=== PATIENT | female | born 1960 | race Caucasian/White ===

== ENCOUNTER 2017-10-28 10:02 | Day surgery (SDC) | payer BC ==
[2017-10-26 16:02] VITALS: BMI 28.1
[~2017-10-28 10:02] MED LIST: LIDOCAINE 1% 20 ML VIAL (10MG/ML) FOR IV START INTRADERMA PRN
[2017-10-28 10:38] VITALS: RESP 18; TEMP 97.4
[2017-10-28] MEDS: LACTATED RINGERS 1,000 ML IV SCH ×2 (10:42→11:12)
[2017-10-28] MEDS ORDERED: PROPOFOL 10 MG/ML 20 ML VIAL IV ONE (11:18)
--- NOTE | 2017-10-28 11:40 | P.PCN ---
Date of Procedure: 10/28/17 Procedure(s) Performed: BRIEF HISTORY: Patient is a 57-year-old pleasant white female, scheduled for an elective colonoscopy as a part of screening for colorectal neoplasia. PROCEDURE PERFORMED: Colonoscopy with biopsy. PREOPERATIVE DIAGNOSIS: Screening for colon cancer. IV sedation per Anesthesia. PROCEDURE: After informed consent was obtained, the patient, was brought into the endoscopy unit. IV sedation was administered by Anesthesia under continuous monitoring. Digital rectal examination was normal. Initially the Olympus CF- 160 flexible video colonoscope was then inserted in the rectum, gradually advanced into the cecum without any difficulty. Careful examination was performed as the scope was gradually being withdrawn. Ileocecal valve and the appendiceal orifice were visualized and appeared normal. Prep was excellent. Mucosa of the cecum, ascending colon, transverse colon, descending colon, sigmoid colon, and rectum appeared normal. In the proximal rectum there was a 5 mm polyp that was removed by biopsy. Retroflexion was performed in the rectum and small internal hemorrhoids were seen. The patient tolerated the procedure well. IMPRESSION: 5 mm proximal rectal polyp status post removal by biopsy. Small internal hemorrhoids RECOMMENDATIONS: Findings of this examination were discussed with the patient as well as a family. She was advised to follow with the biopsy results. If the biopsy shows a tubular adenoma she can have a repeat colonoscopy in 5 years.
[2017-10-28 12:18] VITALS: BP 108/70; PULSE 66
== END 2017-10-28 12:32 | disposition home or self-care (01) ==
LOC: ORWHC2ENDO 10:02
PROVIDERS: ATTEND Internal Medicine Gastroenterology
DX: Z12.11 Encounter for screening for malignant neoplasm of colon (principal); K62.1 Rectal polyp; K64.8 Other hemorrhoids; I10 Essential (primary) hypertension; E78.5 Hyperlipidemia, unspecified; Z88.1 Allergy status to other antibiotic agents; Z79.1 Long term (current) use of non-steroidal anti-inflammatories (NSAID); Z79.899 Other long term (current) drug therapy; F17.210 Nicotine dependence, cigarettes, uncomplicated
CPT/HCPCS: 88305; 45380; J2704

== ENCOUNTER → 2022-08-21 | Outpatient (CLI) | payer OTHER | END | disposition home or self-care (01) | LOC: LABPAT 09:55 | PROVIDERS: ATTEND Orthopaedic Surgery | DX: Z01.812 Encounter for preprocedural laboratory examination (principal); M16.12 Unilateral primary osteoarthritis, left hip ==

== ENCOUNTER 2022-08-25 11:47 | Day surgery (SDC) | payer BC, OTHER ==
[2022-08-20 10:51] VITALS: BMI 27.8
[2022-08-21 11:30] LABS: Prothrombin Time 10.2 sec (9.0-12.0)
[2022-08-21 11:33] LABS: Partial Thromboplastin Time 21.8 sec (22.0-30.0)
[2022-08-24 10:00] LABS: African American GFR (CKD) 77.2 (60.0-200.0); Albumin 3.9 g/dL (3.8-4.9); Albumin/Globulin Ratio 1.38 (1.60-3.17); Anion Gap 11.4 mmol/L (10.00-18.00); BUN/Creat Ratio 12.34 Ratio (12.00-20.00); Blood Urea Nitrogen 11.5 mg/dL (9.0-27.0); Calcium 9.6 mg/dL (8.7-10.3); Carbon Dioxide 26.2 mmol/L (20.0-27.5); Globulin 2.8 g/dL (1.6-3.3); HGB 13.7 g/dL (12.0-15.0); MCH 31.9 pg (27.0-32.0); MCHC 32.6 g/dL (32.0-37.0); MCV 97.7 fL (80.0-97.0); Mean Platelet Volume 10.2 fL (9.5-12.2); NRBC Per 100 WBC 0 /100 WBCS (0.0-0.0); Non-African American GFR(CKD) 66.6 (60.0-200.0); Platelet Count 309 X 10*3/uL (140-440); RDW 13.2 % (11.5-14.5); Total Bilirubin 0.6 mg/dL (0.30-1.20); Total Protein 6.7 g/dL (6.2-8.2); WBC 8.47 X 10*3/uL (4.50-10.00)
[~2022-08-25 11:47] MED LIST changes: +ACETAMINOPHEN TAB 500 MG TAB PO PRN; +DEXAMETHASONE SOD PHOSPHATE 4 MG/ML 1 ML VIAL IV ONE; +GABAPENTIN 300 MG CAP PO PRN; +HYDROmorphone 0.5 MG/0.5 ML SYRINGE IVP PRN; +LACTATED RINGERS 1,000 ML IV SCH; -LIDOCAINE 1% 20 ML VIAL (10MG/ML) FOR IV START INTRADERMA PRN; +MELOXICAM 7.5 MG TAB PO PRN; +ONDANSETRON 4 MG/2 ML VIAL IVP ONE; +TRANEXAMIC ACID IN NACL,ISO-OS 1,000 MG in SALINE 1 100ML.BAG IVPB PRN
[2022-08-25] MEDS ORDERED: ONDANSETRON 4 MG/2 ML VIAL IVP PRN (13:45)
[2022-08-25] MEDS ORDERED: SODIUM CHLORIDE 0.9% 1,000 ML IV SCH (13:45)
[2022-08-25] MEDS ORDERED: HYDROmorphone 0.5 MG/0.5 ML SYRINGE IVP PRN (13:45)
[2022-08-25] MEDS ORDERED: NALOXONE 0.4 MG/ML 1 ML VIAL IV PRN (13:45)
[2022-08-25] MEDS ORDERED: HYDROmorphone 1 MG/ML 1 ML SYRINGE IVP PRN (13:45)
[2022-08-25] MEDS ORDERED: MAGNESIUM HYDROXIDE 2,400 MG/10 ML CUP PO PRN (13:45)
[2022-08-25] MEDS ORDERED: HYDROcodone/APAP 7.5-325MG 1 EACH TAB PO PRN ×3 (13:47→15:13)
[2022-08-25] MEDS ORDERED: KETOROLAC 15 MG/ML 1 ML VIAL IVP PRN (13:49)
[2022-08-25] MEDS ORDERED: traMADol 50 MG TAB PO PRN ×2 (13:49)
[2022-08-25] MEDS ORDERED: fentaNYL (PF) 50 MCG/ML 2 ML AMP ONE (13:50)
[2022-08-25] MEDS ORDERED: TRANEXAMIC ACID IN NACL,ISO-OS 1,000 MG/100 ML BAG ONE (13:50)
[2022-08-25] MEDS ORDERED: PROPOFOL 10 MG/ML 20 ML VIAL IV ONE (13:50)
[2022-08-25] MEDS ORDERED: MIDAZOLAM 2 MG/2 ML VIAL ONE (13:50)
[2022-08-25] MEDS ORDERED: ePHEDrine 50 MG/ML 1 ML VIAL ONE (13:50)
--- NOTE | 2022-08-25 14:55 | P.OP ---
Date of Procedure: 08/25/22 Preoperative Diagnosis: Severe osteoarthritis left hip Postoperative Diagnosis: Severe osteoarthritis left hip Procedure(s) Performed: Left total arthroplasty with a direct anterior approach Implants: [employer] Polarstem standard size 5 with collar [employer] R3, 3 hole hemispherical acetabular shell, 52 mm [employer] Reflection 6.5 mm cancellus screw, 20 mm 2 [employer] R3, XLPE 20 acetabular liner [employer] Oxinium femoral head 36 m, +4 All components were press-fit. The articulation is Oxinium on polyethylene. Anesthesia: spinal Surgeon: Satinder Serrano Ceramic Coater #1: Thuy Chou Estimated Blood Loss (ml): 300 Pathology: other (Femoral head) Condition: stable Disposition: PACU Indications for Procedure: After failure of conservative treatment we discussed the surgical and nons urgical treatment options at length. Patient wishes to proceed with a total hip arthroplasty with a direct anterior approach. Complications specific to this procedure were discussed at length, including but not limited to infection, leg length discrepancy, dislocation, nerve injury, and fracture. Covid-19 was also discussed at length with the patient, and they are aware of the current policies and procedures. The patient was given the option of delaying surgery, but they elect to proceed knowing these risks. Patient is aware of all these complications and informed consent was obtained Operative Findings: The operative findings are consistent with severe osteoarthritis of the left hip Description of Procedure: Patient was seen and evaluated in the preoperative area and the consent was reviewed. The operative site was marked with a skin marker. The patient was then brought to the operating room and given preoperative antibiotics intravenously. 1 g of Tranexamic acid was also given intravenously. A spinal anesthetic was administered by the anesthesia department. The patient was then placed on the [place] table with the bony prominences well-padded. The hip area was then prepped with a ChloraPrep solution and draped in the usual sterile fashion. A universal timeout was then performed, which confirmed the patient's name, surgical site, ALLERGIES, and procedure being performed on the consent. Next the incision site was located at 1 cm distal and 2 cm lateral to the anterior superior iliac spine. The skin and subcutaneous tissues were sharply incised. Incision was carefully dissected down to the fascia overlying the tensor fascia lisandro muscle. This fascia was then incised in line with the incision. Care was taken to stay laterally in order to avoid injuring the lateral femoral cutaneous nerve. Next, using blunt finger dissection, the tensor fascia lisandro muscle was dissected off its investing fascia. The muscle was then carefully retracted laterally with a cobra retractor over the lateral neck of the femur. Next, the circumflex vessels were identified and cauterized using the AquaMantis device. The anterior hip capsule was then exposed. The capsule was then opened and an inverted T fashion. Cobra retractors were then placed intracapsularly. The retractors were maintained intracapsular throughout the procedure. The proximal femur was then visualized. Fluoroscopic x-rays were then taken in order to evaluate the preoperative leg lengths. A small amount of traction was placed on the leg. The femoral neck was then osteotomized at the appropriate level above the lesser trochanter. A small wedge of bone was then removed from the remaining femoral head. Next, using a corkscrew the femoral head was removed from the acetabulum. On gross visual inspection, the femoral head had complete loss of articular cartilage and multiple periarticular osteophytes. The femoral head was then me asured. Attention was then turned to the acetabulum. The acetabulum was exposed and any remaining labrum was excised. Sequential reaming of the acetabulum was performed using fluoroscopic guidance until there was a good bed of bleeding cancellus bone. When the appropriate size was reached, a trial was then placed. The position and fit of the trial was checked with fluoroscopy. The trial was then removed. Then, using fluoroscopic guidance, the final implant was impacted at 20 of anteversion and 40 of abduction, and fully seated in the acetabulum. 2 screws were then placed in the acetabulum. Again fluoroscopy was used to check position of the screws. Next, the liner was then impacted, with a 20 elevated liner located in the anterior superior quadrant. Component locking was confirmed. Attention was then directed to the femur. With the aid of the [place] table, the femur was externally rotated to approximately 130, extended, and adducted under the opposite leg. A side hook was then placed under the proximal femur, and the side hook elevator was used to elevate the proximal femur while releasing the capsule. Retractors were then placed. A capsular release was performed, as well as a release of the conjoined tendon, which afforded excellent visualization of the proximal femur. Next, a box osteotome was used to lateralize the proximal femur. A copper roller handler printing was then used to locate the femoral canal. Sequential broaching was then performed with appropriate size which afforded excellent fixation in the proximal femur. A trial was then placed with appropriate head and neck, and the hip was gently reduced with the aid of the [place] table. Fluoroscopy was then used to check position of the components, as well as to evaluate the leg lengths and offset. The leg lengths and offset were measured as closely as possible to ensure stability of the hip. The hip was then gently dislocated and the trials were then removed. Final implants were then impacted and the hip was again reduced. Final fluoroscopic x-rays confirmed that the components were in anatomic position. The leg lengths and offset were measured and were found to coincide with the trial measurements. The hip was also taken through range of motion, and found to be stable. The hip was then copiously irrigated with antibiotic solution with pulsatile lavage. The hip was then irrigated with Irrisept solution. The soft tissues were then injected with a ropivacaine solution. A second dose of 1 g of Tranexamic acid was also given intravenously. The fascia was then closed with 2-0 strata fix suture. The subcutaneous tissue was closed with 3-0 Vicryl. The subcuticular tissue was closed with 3-0 strata fix suture. The skin was then closed with Exofin skin glue. After the glue and dried, and Optifoam silver impregnated dressing was applied. The patient was then transferred to the recovery room in stable condition. The orthopaedic physician assistant SANTIAGO Guillaume was required due to the complexity of surgery, and the need for skilled cardiovascular surgical tech for positioning, draping, exposure, retraction, and closure of the wound.
--- NOTE | 2022-08-25 15:29 | FL ---
EXAMINATION TYPE: FL guidance operating room, XR Hip Limited LT DATE OF EXAM: 08/25/2022 CLINICAL HISTORY: Left hip pain and osteoarthritis. TECHNIQUE: Fluoroscopy. Intraoperative limited views left hip. COMPARISON: None. FINDINGS: Fluoroscopic guidance was provided during left hip replacement procedure performed by Dr. Serrano. A total of 39 seconds of fluoroscopic time was utilized during the procedure and 3 spot im ages was acquired. Intraoperative images acquired show first advanced degenerative change left hip. There is subsequent hip replacement. Metallic hardware appears satisfactory in position on frontal intraoperative views o btained. IMPRESSION: As Above.
--- NOTE | 2022-08-25 15:50 | XR ---
EXAMINATION TYPE: XR Hip Limited LT DATE OF EXAM: 08/25/2022 COMPARISON: NONE HISTORY: . Postop TECHNIQUE: One view submitted. FINDINGS: There is postsurgical change in near anatomic alignment. There is soft tissue edema and emphysema. IMPRESSION: 1. Postoperative change. Appears in near-anatomic alignment.
[2022-08-25] MEDS: ASPIRIN 325 MG TAB PO SCH (19:44)
[2022-08-25] MEDS: HYDROmorphone 0.5 MG/0.5 ML SYRINGE IVP PRN (19:45)
[2022-08-25] MEDS ORDERED: ASPIRIN 325 MG TAB PO SCH (21:00)
[2022-08-25] MEDS ORDERED: SENNOSIDES-DOCUSATE SODIUM 1 EACH TAB PO SCH (21:00)
[2022-08-26] MEDS: HYDROmorphone 0.5 MG/0.5 ML SYRINGE IVP PRN (00:43)
[2022-08-26] MEDS: HYDROcodone/APAP 7.5-325MG 1 EACH TAB PO PRN ×2 (02:40→08:30)
[2022-08-26 03:04] VITALS: TEMP 97.8
--- NOTE | 2022-08-26 07:34 | P.DS ---
Providers Expected date of discharge: 08/26/22 Attending physician: Satinder Serrano Consults: 08/25/22 15:17 Consult Physician Routine Consulting Provider: Dat Ko Consult Reason/Comments: medical management Do you want consulting provider notified?: Yes Primary care physician: Estephania Darnell - Discharge Diagnosis(es) (1) Primary localized osteoarthritis of left hip Current Visit: Yes Status: Acute (2) Status post total hip replacement, left Current Visit: Yes Status: Acute Hospital Course: This is a 62-year-old female with known history of degenerative arthritis of the left hip. The patient presents for evaluation. After discussion and consideration patient elects to proceed with total hip arthroplasty with direct anterior approach. The patient is seen preoperatively by primary care physician and cleared for surgery. Patient is admitted to [facility] on 08/25/2022 for total hip arthroplasty with direct anterior approach. The procedure is performed without complication or sequelae. The patient is doing well postoperatively. Labs and vital signs are stable on day of discharge. On day of discharge patient's hip incision is healing well. There is minimal erythema. There is no drainage noted at this time. There is minimal soft tissue swelling to the hip and thigh. Patient has full foot and ankle motion without difficulty or pain. Neurovascular status to the lower extremity is intact. Patient is discharged to home in good condition. Please see med rec for accurate list of home medications. Patient Condition at Discharge: Good Plan - Discharge Summary Discharge Rx Participant: Yes New Discharge Prescriptions: New HYDROcodone/APAP 7.5-325MG [[place] 7.5-325] 1 - 2 tab PO Q6H PRN #32 tab PRN Reason: Pain Aspirin 325 mg PO BID #60 tab Sennosides [Senokot] 2 tab PO DAILY PRN #60 tablet PRN Reason: Constipation No Action guaiFENesin [Mucinex] 600 mg PO Q12H Ezetimibe [Zetia] 10 mg PO HS Amoxicillin 500 mg PO Q12HR Albuterol Sulfate [Albuterol Sulfate Hfa] 2 puff PO Q6H Atorvastatin [Lipitor] 40 mg PO HS Anastrozole [Arimidex] 1 mg PO DAILY Discharge Medication List Albuterol Sulfate [Albuterol Sulfate Hfa] 2 puff PO Q6H 08/20/22 [History] Amoxicillin 500 mg PO Q12HR 08/20/22 [History] Anastrozole [Arimidex] 1 mg PO DAILY 08/20/22 [History] Atorvastatin [Lipitor] 40 mg PO HS 08/20/22 [History] Ezetimibe [Zetia] 10 mg PO HS 08/20/22 [History] guaiFENesin [Mucinex] 600 mg PO Q12H 08/20/22 [History] Aspirin 325 mg PO BID #60 tab 08/25/22 [Rx] HYDROcodone/APAP 7.5-325MG [[place] 7.5-325] 1 - 2 tab PO Q6H PRN #32 tab 08/25/22 [Rx] Sennosides [Senokot] 2 tab PO DAILY PRN #60 tablet 08/25/22 [Rx] Follow up Appointment(s)/Referral(s): Satinder Serrano DO [Doctor of Osteopathic Medicine] - 2 Weeks Activity/Diet/Wound Care/Special Instructions: Weightbearing as tolerated with walker. Leave dressing intact. Dressing may be removed by home care nurse or by patient in 7 days. Then change dressing twice daily until follow up. May shower with initial dressing intact and after removal. If dressing become saturated, please remove. Please take aspirin 325mg twice daily for 30 days to prevent blood clots. Recommend use of compression stockings daily until follow up to help prevent swelling and blood clots. May remove at night before sleeping. Please follow-up with [facility] in 2 weeks and call with any questions or concerns, . Discharge Disposition: HOME WITH HOME HEALTH SERVICES
[2022-08-26 07:55] VITALS: BP 114/75; PULSE 63; RESP 17
[2022-08-26] MEDS: ASPIRIN 325 MG TAB PO SCH (08:30)
[2022-08-26 09:51] LABS: Basophils # (A) 0.03 X 10*3/uL (0.00-0.10); Basophils % (A) 0.2 %; Eosinophils # (A) 0 X 10*3/uL (0.04-0.35); Eosinophils % (A) 0 %; HCT 31.7 % (37.2-46.3); HGB 10.7 g/dL (12.0-15.0); Immature Grans, Automated 0.6 %; Lymphocytes # (A) 2.08 X 10*3/uL (0.90-5.00); Lymphocytes % (A) 16.4 %; MCH 31.7 pg (27.0-32.0); MCHC 33.8 g/dL (32.0-37.0); MCV 93.8 fL (80.0-97.0); Mean Platelet Volume 10.3 fL (9.5-12.2); Monocytes # (A) 0.75 X 10*3/uL (0.20-1.00); Monocytes % (A) 5.9 %; NRBC Per 100 WBC 0 /100 WBCS (0.0-0.0); Neutrophils # (A) 9.79 X 10*3/uL (1.80-7.70); Neutrophils % (A) 76.9 %; Platelet Count 307 X 10*3/uL (140-440); RBC 3.38 X 10*6/uL (4.10-5.20); RDW 12.9 % (11.5-14.5); WBC 12.72 X 10*3/uL (4.50-10.00)
--- NOTE | 2022-08-26 15:25 | P.CONS ---
History of Present Illness - Reason for Consult Consult date: 08/26/22 Medical management, postop left hip arthroplasty - History of Present Illness This is a 62-year-old female who was recently admitted under orthopedic services and underwent left total hip arthroplasty. Patient follows with Dr. Darnell in the outpatient setting with a past medical history of breast cancer, hyperlipidemia, osteoarthritis, along with seasonal ALLERGIES, and reports to being a former smoker with occasional social drinking and denies any other illicit drug use. Patient is postoperatively feeling well and worked with physical therapy and plans for going home today. Patient reports she has been having some nasal congestion and currently on antibiotics from her primary care provider for a sinus infection. She reports she has been on a few different antibiotics and also had testing for Covid which was negative. Preadmission labs were reviewed and within normal limits and repeat CBC today shows a mildly elevated WBC of 12.72 most likely reactive. Vital signs are stable and patient denies chest pain or shortness of breath. Review Of Systems: Constitutional: No fever, no chills, no night sweats. No weight change. No weakness, fatigue or lethargy. No daytime sleepiness. EENT: No headache. No blurred vision or double vision, no loss of vision. No loss of Hearing, no ringing in the ears, no dizziness. Reports seasonal ALLERGIES with nasal drainage and some increased congestion the last 2 weeks. No epistaxis. No sore throat. Lungs: No shortness of breath, reports occasional cough, no sputum production. No wheezing. Cardiovascular: No chest pain, no lower extremity edema. No palpitations. No paroxysmal nocturnal dyspnea. No orthopnea. No lightheadedness or dizziness. No syncopal episodes. Abdominal: No abdominal pain. No nausea, vomiting. No diarrhea. No constipation. No bloody or tarry stools.. No loss of appetite. Genitourinary: No dysuria, increased frequency, urgency. No urinary retention. Musculoskeletal: No myalgias. No muscle weakness, no gait dysfunction, no frequent falls. No back pain. No neck pain. Reports some left hip discomfort Integumentary: No wounds, no lesions. No rash or pruritus. No unusual bruising. No change in hair or nails. Neurologic: No aphasia. No facial droop. No change in mentation. No head injury. No headache. No paralysis. No paresthesia. Psychiatric: No depression. No anxiety. No mood swings. Endocrine: No abnormal blood sugars. No weight change. No excessive sweating or thirst. No cold intolerance. PHYSICAL EXAMINATION: GENERAL: The patient is alert and oriented x4, Well developed, well nourished. HEENT: Pupils are round and equally reacting to light. EOMI. no scleral icterus. No conjunctival pallor. Normocephalic, atraumatic. No pharyngeal erythema. No thyromegaly. CARDIOVASCULAR: S1 and S2 muffled PULMONARY: diminished breath sounds bilaterally with no wheezing or rhonchi noted. ABDOMEN: soft. Nontender on exam. non-distended, normoactive bowel sounds. No palpable organomegaly. MUSCULOSKELETAL: No joint swelling or deformity. EXTREMITIES: No cyanosis, clubbing, or pedal edema. Left hip surgical dressing is dry and intact NEUROLOGICAL: Gross neurological examination did not reveal any focal deficits. SKIN: No rashes. Assessment: Status post left total knee arthroplasty, postop day 1 History of osteoarthritis History of breast cancer History of seasonal ALLERGIES GI prophylaxis DVT prophylaxis Full code Plan: Recommend to continue with current medications and management per orthopedic services. Patient has been seen and evaluated by PT/OT therapy and did relati vely well and will be going home today. Patient with incentive spirometer at the bedside recommend continuing to use at least 10 times every hour while awake. Patient reports is some mild nausea and unsure if it was the Orla or postanesthesia and discussed with her it could be a combination of both. Recommend to use anti-nausea medication as needed and try taking half of the pain pill with medication with food and monitoring for any further nausea. Patient to follow-up with her primary care provider in the outpatient setting as she has been seeing them most recently for a sinus infection. Patient also to follow-up with her oncologist outpatient as she reports she did prior to surgery as well. We will continue to follow along with orthopedics during hospitalization. Thank you kindly for this consultation. The impression and plan of care has been dictated by Jolanta López, nurse practitioner as directed. Dr.Vegesna BECERRA I have performed a history and examination and MDM of this patient, discussed the same with the dictator, and agree with the dictator's assessment and plan as written ,documented as a scribe. Based on total visit time, I have performed more than 50% of the visit. Any additional findings or plans will be noted. Past Medical History Past Medical History: Cancer, Hyperlipidemia, Osteoarthritis (OA) Additional Past Medical History / Comment(s): HX LT BREAST CANCER-HAD SX. ACCELERATED RADIATION 2019. SEASONAL ALLERGIES. PT CURRENTLY ON ANTIBIOTICS FOR CHEST COLD, TL[facility] 08/25/2022 History of Any Multi-Drug Resistant Organisms: None Reported Past Surgical History: Appendectomy, Hysterectomy, Joint Replacement, Orthopedic Surgery Additional Past Surgical History / Comment(s): RT KNEE SCOPES X 2. LAPAROSCOPY. ORIF LT ELBOW. LT BREAST LUMPECTOMY. COLONOSCOPY Past Anesthesia/Blood Transfusion Reactions: No Reported Reaction Past Psychological History: No Psychological Hx Reported Smoking Status: Former smoker Past Alcohol Use History: Occasional Additional Past Alcohol Use History / Comment(s): started smoking 1977,<1ppd- STOPPED SMOKING 2 WEEKS AGO Past Drug Use History: None Reported - Past Family History Mother Family Medical History: No Reported History Father Family Medical History: COPD, Coronary Artery Disease (CAD) Medications and Allergies Home Medications Medication Instructions Recorded Confirmed Type Albuterol Sulfate [Albuterol 2 puff PO Q6H 08/20/22 08/25/22 History Sulfate Hfa] Amoxicillin 500 mg PO Q12HR 08/20/22 08/25/22 History Anastrozole [Arimidex] 1 mg PO DAILY 08/20/22 08/25/22 History Atorvastatin [Lipitor] 40 mg PO HS 08/20/22 08/25/22 History Ezetimibe [Zetia] 10 mg PO HS 08/20/22 08/25/22 History guaiFENesin [Mucinex] 600 mg PO Q12H 08/20/22 08/25/22 History Aspirin 325 mg PO BID #60 tab 08/25/22 Rx HYDROcodone/APAP 7.5-325MG [Orla 1 - 2 tab PO Q6H PRN #32 tab 08/25/22 Rx 7.5-325] Sennosides [Senokot] 2 tab PO DAILY PRN #60 tablet 08/25/22 Rx Ondansetron Odt [Zofran Odt] 4 mg PO Q8HR PRN #20 tab 08/26/22 Rx Allergies Allergy/AdvReac Type Severity Reaction Status Date / Time sulfamethoxazole Allergy Rash/Hives Verified 08/25/22 12:45 [From Bactrim] tetracycline Allergy SOB,swellin Verified 08/25/22 12:45 g trimethoprim [From Bactrim] Allergy Rash/Hives Verified 08/25/22 12:45 Physical Exam Vitals: Vital Signs Temp Pulse Pulse Resp BP BP Pulse Ox 08/26/22 07:54 97.8 F 63 17 114/75 91 L 08/26/22 02:00 97.8 F 74 16 143/87 100 08/25/22 20:00 97.6 F 68 16 121/77 91 L 08/25/22 17:45 68 113/76 08/25/22 17:30 73 108/67 08/25/22 17:15 72 117/81 08/25/22 17:00 78 109/70 08/25/22 16:45 97.4 F L 67 18 112/64 94 L 08/25/22 15:59 68 16 107/61 97 08/25/22 15:44 84 16 109/58 97 08/25/22 15:29 74 16 94/51 100 08/25/22 15:13 97.3 F L 80 14 90/54 96 08/25/22 12:48 98 F 70 16 146/74 96 Intake and Output 08/25/22 08/26/22 08/26/22 22:59 06:59 14:59 Intake Total 100 Balance 100 Intake: IV 100 Other: Voiding Method Toilet # Voids 1 4 Weight 91.1 kg Results CBC & Chem 7: 08/26/22 06:21 08/21/22 10:49
== END 2022-08-26 11:35 | disposition home health service (06) ==
LOC: OR 11:47 → 4SSUR 15:06 → OR 08-26 11:35
PROVIDERS: ATTEND Orthopaedic Surgery
DX: M16.12 Unilateral primary osteoarthritis, left hip (principal); E78.5 Hyperlipidemia, unspecified; Z90.710 Acquired absence of both cervix and uterus; Z90.89 Acquired absence of other organs; Z96.60 Presence of unspecified orthopedic joint implant; Z87.891 Personal history of nicotine dependence; Z82.49 Family history of ischemic heart disease and other diseases of the circulatory system; Z79.899 Other long term (current) drug therapy; Z79.82 Long term (current) use of aspirin
CPT/HCPCS: 97161; 97166; 86900; 86901; 80053; 85025; 85027; 85610; 85730; 86850; 87070; 87086; 73501; 27130; C1776; J1100; J0690; J2405; J1170 ×2; 88305; 88311